=== PATIENT | female | born 1965 | race Caucasian/White ===

== ENCOUNTER 2022-01-21 08:05 | Emergency (ER) | payer MEDICARE, OTHER ==
[~2022-01-21] VITALS: Ht 167 cm; Wt 64.0 kg
--- NOTE | 2022-01-21 09:00 | ED Abdominal Pain ---
General Chief Complaint: Abdominal/GI Problems Stated Complaint: CONSTIPATION Nursing Triage Note: PT AMB TO RM 10 PT CO OF CONTSTIPATION FOR 6 MONTHS, PT STATES ONLY SMALL BM. STATES WHEN TRIES TO HAVE BM HAS PROTRUSION THAT IS LARGE ENOUGH TO FIT IN HAND. [facility] DOES NOT HAVE PCP AT THIS X. RATES PAIN10/10. HAS BEEN TAKING MIRLAX. Source of Information: Patient Exam Limitations: No Limitations History of Present Illness Date Seen by Provider: Jan 21, 2022 Time Seen by Provider: 08:50 Initial Comments Patient is a 56-year-old female who presents to the emergency department today with a chief complaint of diffuse abdominal discomfort, abdominal bloating and constipation. Patient states she has not had a "good" bowel movement in the last 6 months. She describes progressive constipation and she is only passing "little balls" of stool. No diarrhea, nothing black or bloody. No fevers or chills. She denies chest pain, shortness of breath. She has been able to eat and drink. She is occasionally nauseous. No history of prior abdominal surgeries. She is not on any daily medications. She has never had a colonoscopy. She states when she strains to have a bowel movement she still feels something at her rectum that she states is large enough to fit in her hand. She has tried to manually disimpact herself but could not feel any stool. She has used multiple yhvo-mpr-vyzorfs medications to try and have bowel movements. She has had 2 enemas, Dulcolax, she takes daily MiraLAX a capful in her coffee daily. She is also been using some Metamucil. She denies any unintentional weight loss. She does occasionally have night sweats. She is a smoker. All other review of systems reviewed and negative except as stated. Timing/Duration: Other (6 months) Severity/Quality: Cramping Location: Generalized Abdomen Radiation: No Radiation Activities at Onset: None Associated Symptoms: Weakness Allergies and Home Medications Allergies Coded Allergies: No Known Drug Allergies (Unverified , 01/21/22) Patient Home Medication List Home Medication List Reviewed: Yes Peg/Electrolytes (Golytely Solution) 236-22.74G Soln, 4,000 ML PO ONCE Prescribed by: JESUS HAYWOOD on 01/21/22 1126 Review of Systems Review of Systems Constitutional: see HPI EENTM: No Symptoms Reported Respiratory: No Symptoms Reported Cardiovascular: No Symptoms Reported Gastrointestinal: Abdominal Pain, Constipated Genitourinary: No Symptoms Reported Musculoskeletal: no symptoms reported Skin: no symptoms reported All Other Systems Reviewed Negative Unless Noted: Yes Physical Exam Vital Signs Vital Signs - First Documented 01/21/22 08:20 Temp 36.7 Pulse 117 Resp 18 B/P (MAP) 157/131 (140) Pulse Ox 98 Capillary Refill : Less Than 3 Seconds Height/Weight/BMI Height: '" Weight: lbs. oz. kg; 22.00 BMI Method: General Appearance: WD/WN, mild distress HEENT: PERRL/EOMI, other (Dry oral mucosa) Neck: normal inspection Respiratory: lungs clear, normal breath sounds, no respiratory distress, no accessory muscle use Cardiovascular: regular rate, rhythm, tachycardia (115) Gastrointestinal: soft, abnormal bowel sounds (Hypoactive bowel sounds), other (Abdomen is somewhat "bloated"/distended) Rectal: normal exam, other (No external hemorrhoids, no palpable internal hemorrhoids, no stool was palpated in the rectal vault. No blood observed) Extremities: normal range of motion, non-tender, normal inspection, no pedal edema Neurologic/Psychiatric: no motor/sensory deficits, alert, normal mood/affect, oriented x 3 Skin: normal color, warm/dry Progress/Results/Core Measures Results/Orders Lab Results Laboratory Tests Test 01/21/22 09:20 01/21/22 10:40 Range/Units White Blood Count 8.4 4.3-11.0 10^3/uL Red Blood Count 4.54 3.80-5.11 10^6/uL Hemoglobin 13.9 11.5-16.0 g/dL Hematocrit 43 35-52 % Mean Corpuscular Volume 94 80-99 fL Mean Corpuscular Hemoglobin 31 25-34 pg Mean Corpuscular Hemoglobin Concent 33 32-36 g/dL Red Cell Distribution Width 13.2 10.0-14.5 % Platelet Count 358 130-400 10^3/uL Mean Platelet Volume 8.8 L 9.0-12.2 fL Immature Granulocyte % (Auto) 0 % Neutrophils (%) (Auto) 59 42-75 % Lymphocytes (%) (Auto) 30 12-44 % Monocytes (%) (Auto) 8 0-12 % Eosinophils (%) (Auto) 2 0-10 % Basophils (%) (Auto) 1 0-10 % Neutrophils # (Auto) 5.0 1.8-7.8 10^3/uL Lymphocytes # (Auto) 2.5 1.0-4.0 10^3/uL Monocytes # (Auto) 0.7 0.0-1.0 10^3/uL Eosinophils # (Auto) 0.2 0.0-0.3 10^3/uL Basophils # (Auto) 0.1 0.0-0.1 10^3/uL Immature Granulocyte # (Auto) 0.0 0.0-0.1 10^3/uL Sodium Level 140 135-145 MMOL/L Potassium Level 3.7 3.6-5.0 MMOL/L Chloride Level 106 98-107 MMOL/L Carbon Dioxide Level 24 21-32 MMOL/L Anion Gap 10 5-14 MMOL/L Blood Urea Nitrogen 13 7-18 MG/DL Creatinine 0.71 0.60-1.30 MG/DL Estimat Glomerular Filtration Rate 101 BUN/Creatinine Ratio 18 Glucose Level 110 H 70-105 MG/DL Calcium Level 9.5 8.5-10.1 MG/DL Corrected Calcium 9.6 8.5-10.1 MG/DL Total Bilirubin 0.3 0.1-1.0 MG/DL Aspartate Amino Transf (AST/SGOT) 12 5-34 U/L Alanine Aminotransferase (ALT/SGPT) 12 0-55 U/L Alkaline Phosphatase 72 40-136 U/L Total Protein 6.8 6.4-8.2 GM/DL Albumin 3.9 3.2-4.5 GM/DL Urine Color YELLOW Urine Clarity CLEAR Urine pH 6.5 5-9 Urine Specific Moville 1.010 L 1.016-1.022 Urine Protein NEGATIVE NEGATIVE Urine Glucose (UA) NEGATIVE NEGATIVE Urine Ketones NEGATIVE NEGATIVE Urine Nitrite NEGATIVE NEGATIVE Urine Bilirubin NEGATIVE NEGATIVE Urine Urobilinogen 0.2 < = 1.0 MG/DL Urine Leukocyte Esterase NEGATIVE NEGATIVE Urine RBC (Auto) NEGATIVE NEGATIVE Urine RBC NONE /HPF Urine WBC NONE /HPF Urine Squamous Epithelial Cells 0-2 /HPF Urine Crystals NONE /LPF Urine Bacteria NEGATIVE /HPF Urine Casts NONE /LPF Urine Mucus NEGATIVE /LPF Urine Culture Indicated NO My Orders Orders - JESUS HAYWOOD MD Ed Iv/Invasive Line Start (01/21/22 09:06) Cbc With Automated Diff (01/21/22 09:06) Comprehensive Metabolic Panel (01/21/22 09:06) Ua Culture If Indicated (01/21/22 09:06) Abdomen/Kub 1view (01/21/22 09:06) Ns Iv 1000 Ml (Sodium Chloride 0.9%) (01/21/22 09:15) Fentanyl Inj (Sublimaze Injection) (01/21/22 09:15) Ct Abdomen/Pelvis W (01/21/22 10:23) Iohexol Injection (Omnipaque 350 Mg/Ml 1 (01/21/22 10:30) Received Contrast (Hold Metformin- Contr (01/21/22 10:30) Ns (Ivpb) (Sodium Chloride 0.9% Ivpb Bag (01/21/22 10:30) Fentanyl Inj (Sublimaze Injection) (01/21/22 11:30) Medications Given in ED Current Medications Medications Dose Ordered Sig/Chele Route Start Time Stop Time Status Last Admin Dose Admin Fentanyl Citrate 50 mcg ONCE ONCE IVP 01/21/22 09:15 01/21/22 09:16 DC 01/21/22 09:22 50 MCG Fentanyl Citrate 50 mcg ONCE ONCE IVP 01/21/22 11:30 01/21/22 11:31 DC 01/21/22 11:41 50 MCG Iohexol 100 ml ONCE ONCE IV 01/21/22 10:30 01/21/22 10:31 DC 01/21/22 10:36 80 ML Sodium Chloride 100 ml ONCE ONCE IV 01/21/22 10:30 01/21/22 10:31 DC 01/21/22 10:36 80 ML Vital Signs/I&O 01/21/22 01/21/22 08:20 11:45 Temp 36.7 Pulse 117 80 Resp 18 18 B/P (MAP) 157/131 (140) 136/88 Pulse Ox 98 98 Blood Pressure Mean: 140 Progress Progress Note : Time: 12:18 Progress Note Patient seen and examined, 56-year-old with progressive constipation and abdominal discomfort. Evaluation today includes a physical exam, CBC, chemistry. Her labs are basically unremarkable. She had a KUB which shows an extensive amount of stool in the upper abdomen with gas almost to the rectum. CT of the abdomen and pelvis with IV contrast shows some stranding around the duodenum and pancreatic head. No obvious masses. No evidence of bowel obstruction, tumors, free fluid. She has a nonsurgical exam. She is treated with fentanyl and IV fluids with some relief of symptoms. I have prescribed her some GoLytely to try and help with her constipation. She is recommended to drink plenty of fluids and continue wrav-wjt-zfknuaf fiber and stool softeners. I have strongly encouraged her to quit smoking and to follow-up with her primary care physician. She needs a colonoscopy to evaluate for potential intraluminal abnormalities such as colon cancers. She does have an aunt who had colon cancer. Patient verbalizes understanding of the discharge instructions. She is comfortable with plan of care. All questions are sought and answered. Patient is stable at discharge. Diagnostic Imaging Diagonstic Imaging: Xray Comments [facility] [place] NAME: REENA HOOVER [facility] REC#: [id number] PT STATUS: REG ER : 1965 PHYSICIAN: JESUS HAYWOOD MD ADMIT DATE: 01/21/22/ER Signed Date of Exam:01/21/22 ABDOMEN/KUB 1VIEW HISTORY: Abdominal pain TECHNIQUE: Frontal views of the abdomen COMPARISON: None FINDINGS: There is szovqtwn-kv-fmfuua stool throughout the colon. No distended loops of small bowel are seen. There is no large collection of free air. There are phleboliths in the pelvis. IMPRESSION: 1. Fmekgtyv-an-pzzyth stool in the colon, consistent with constipation. Dictated by: Dictated on workstation # [id number] Dict: 01/21/22924 Trans: 01/21/22947 [facility] [id number] Interpreted by: DANA MATHUR MD Electronically signed by: DANA MATHUR MD 01/21/22947 Comments [facility] [place] NAME: KIKOREENA [facility] REC#: [id number] PT STATUS: REG ER : 1965 PHYSICIAN: JESUS HAYWOOD MD ADMIT DATE: 01/21/22/ER Draft Date of Exam:11/05/22 CT ABDOMEN/PELVIS W Clinical indications: Patient complains of constipation for 6 months. Patient only has small bowel movements. Patient has bowel movement protrusion that is large enough to fit in his hand. EXAM: Axial CT scan of the abdomen and pelvis performed with 80 mL of Omnipaque 350 IV contrast. Sagittal and coronal reformatted images are created. COMPARISON: None. FINDINGS: There is minimal atelectasis involving the posterior aspects of both lung bases. There is lower lumbar spine facet arthropathy. There are small spurs involving the lumbar spine. The liver, spleen, and adrenal glands unremarkable. Gallbladder is decompressed and otherwise unremarkable. There is wall thickening and fat stranding adjacent to the 1st portion of duodenum and near the pancreatic head. There is a focal area of calcification within the head of the pancreas. Pancreas is otherwise unremarkable. The stomach is decompressed with wall thickening seen which is nonspecific. Both kidneys are unremarkable with no hydronephrosis or mass. Bladder is fluid-filled and otherwise unremarkable. There is a moderate to large amount of stool involving the right colon and moderate amount of stool involving the transverse colon. There is a small amount of stool involving the proximal descending colon. The rest of the descending colon, sigmoid colon are decompressed. There is air distention of the rectum but no stool is seen in the rectum. There is no intestinal obstruction. There is no lymphadenopathy. Uterus is surgically absent. The ovaries are not definitively visualized and may be small in size or surgically absent. Extra abdominal and extrapelvic soft tissue structures are unremarkable. IMPRESSION: 1: There is a moderate amount of stool seen from the cecum to the distal transverse colon. There is no evidence of intestinal obstruction. 2: There is wall thickening and fat stranding adjacent to the 1st portion of duodenum. There is also fat stranding adjacent to the pancreatic head. These findings may be related to duodenitis. Pancreatitis also cannot be completely excluded. Serology tests would help better evaluate. Dictated on workstation # [id number] Dict: 01/21/22 1043 Trans: 01/21/22 1103 [id number] Interpreted by: TITI LOZA MD Electronically signed by: Departure Impression Primary Impression: Abdominal pain Qualified Codes: R10.84 - Generalized abdominal pain Additional Impression: Constipation Qualified Codes: K59.00 - Constipation, unspecified Disposition: 01 HOME, SELF-CARE Condition: Improved Departure-Patient Inst. Decision time for Depature: 11:24 Referrals: TYREL HORN MD (PCP/Family) Primary Care Physician Patient Instructions: Abdominal Pain, Adult ED, Constipation, Adult ED Add. Discharge Instructions: Drink lots of fluids/water to stay well-hydrated. I have given you a prescription for "GoLytely". Mix this as directed. You can mix it with Sprite. Try and drink the whole gallon and 1 evening. You will have some abdominal cramping. You can take hbqy-nyp-qsmyoji Aleve or generic equal 2 pills twice daily with food for the cramping. If you develop a fever or vomiting or worsening abdominal pain please come back to the emergency room for reevaluation. Please call your primary care doctor's office on Sunday to schedule a fo llow-up and reevaluation. You absolutely need a colonoscopy to look inside your colon for why you have been constipated the last 6 months. Scripts Peg/Electrolytes (Golytely Solution) 236-22.74G Soln 4000 ML PO ONCE, #1 EA Prov: JESUS HAYWOOD MD 01/21/22 Copy Copies To 1: TYREL HORN MD, KATHRYN M MD Jan 21, 2022 09:00
[2022-01-21] MEDS ORDERED: fentaNYL INJ 100 MCG/2 ML AMP IVP ONE ×2 (09:15→11:30)
[2022-01-21] MEDS ORDERED: NS IV 1000 ML 1,000 ML IV SCH (09:15)
--- NOTE | 2022-01-21 09:34 | Diagnostic Imaging Report ---
HISTORY: Abdominal pain TECHNIQUE: Frontal views of the abdomen COMPARISON: None FINDINGS: There is izylskun-lv-jzdslz stool throughout the colon. No distended loops of small bowel are seen. There is no large collection of free air. There are phleboliths in the pelvis. IMPRESSION: 1. Ertzosnx-it-lxbfdv stool in the colon, consistent with constipation. Dictated by: Dictated on workstation # [id number]
[2022-01-21 09:36] LABS: BASOPHILS # (AUTO) 0.1 10^3/uL (0.0-0.1); BASOPHILS % (AUTO) 1 % (0-10); EOSINOPHILS # (AUTO) 0.2 10^3/uL (0.0-0.3); EOSINOPHILS % (AUTO) 2 % (0-10); HEMATOCRIT 43 % (35-52); HEMOGLOBIN 13.9 g/dL (11.5-16.0); LYMPHOCYTES # (AUTO) 2.5 10^3/uL (1.0-4.0); LYMPHOCYTES % (AUTO) 30 % (12-44); MEAN CORPUSCULAR HEMOGLOBIN 31 pg (25-34); MEAN CORPUSCULAR HGB CONC 33 g/dL (32-36); MEAN CORPUSCULAR VOLUME 94 fL (80-99); MEAN PLATELET VOLUME 8.8 fL (9.0-12.2); MONOCYTES # (AUTO) 0.7 10^3/uL (0.0-1.0); MONOCYTES % (AUTO) 8 % (0-12); NEUTROPHILS % (AUTO) 59 % (42-75); PLATELET COUNT 358 10^3/uL (130-400); WHITE BLOOD COUNT 8.4 10^3/uL (4.3-11.0)
[2022-01-21 09:47] LABS: ALBUMIN 3.9 GM/DL (3.2-4.5); POTASSIUM 3.7 MMOL/L (3.6-5.0)
[2022-01-21 09:48] LABS: CALCIUM 9.5 MG/DL (8.5-10.1)
[2022-01-21 09:49] LABS: TOTAL PROTEIN 6.8 GM/DL (6.4-8.2)
[2022-01-21 09:51] LABS: BILIRUBIN,TOTAL 0.3 MG/DL (0.1-1.0)
[2022-01-21 09:53] LABS: CREATININE SERUM 0.71 MG/DL (0.60-1.30)
[2022-01-21] MEDS ORDERED: IOHEXOL 350 MG/ML 100 ML (OMNIPAQUE 350) VIAL IV ONE (10:30)
[2022-01-21] MEDS ORDERED: NS 100 ML (IVPB) BAG IV ONE (10:30)
[2022-01-21] MEDS ORDERED: HOLD METFORMIN - RECEIVED CONTRAST 20 ML VIAL IV SCH (10:30)
[2022-01-21 10:57] LABS: BILIRUBIN,URINE NEGATIVE (NEGATIVE); CLARITY,URINE CLEAR; COLOR,URINE YELLOW; GLUCOSE, URINE (UA) NEGATIVE (NEGATIVE); KETONES,URINE NEGATIVE (NEGATIVE); LEUKOCYTE ESTERASE ,URINE NEGATIVE (NEGATIVE); NITRITE,URINE NEGATIVE (NEGATIVE); PH,URINE 6.5 (5-9); PROTEIN,URINE NEGATIVE (NEGATIVE)
[2022-01-21 11:03] LABS: BACTERIA,URINE NEGATIVE /HPF; SQUAMOUS EPITHELIAL CELL,UR 0-2 /HPF
--- NOTE | 2022-01-21 11:05 | Diagnostic Imaging Report ---
Clinical indications: Patient complains of constipation for 6 months. Patient only has small bowel movements. Patient has bowel movement protrusion that is large enough to fit in his hand. EXAM: Axial CT scan of the abdomen and pelvis performed with 80 mL of Omnipaque 350 IV contrast. Sagittal and coronal reformatted images are created. COMPARISON: None. FINDINGS: There is minimal atelectasis involving the posterior aspects of both lung bases. There is lower lumbar spine facet arthropathy. There are small spurs involving the lumbar spine. The liver, spleen, and adrenal glands unremarkable. Gallbladder is decompressed and otherwise unremarkable. There is wall thickening and fat stranding adjacent to the 1st portion of duodenum and near the pancreatic head. There is a focal area of calcification within the head of the pancreas. Pancreas is otherwise unremarkable. The stomach is decompressed with wall thickening seen which is nonspecific. Both kidneys are unremarkable with no hydronephrosis or mass. Bladder is fluid-filled and otherwise unremarkable. There is a moderate to large amount of stool involving the right colon and moderate amount of stool involving the transverse colon. There is a small amount of stool involving the proximal descending colon. The rest of the descending colon, sigmoid colon are decompressed. There is air distention of the rectum but no stool is seen in the rectum. There is no intestinal obstruction. There is no lymphadenopathy. Uterus is surgically absent. The ovaries are not definitively visualized and may be small in size or surgically absent. Extra abdominal and extrapelvic soft tissue structures are unremarkable. IMPRESSION: 1: There is a moderate amount of stool seen from the cecum to the distal transverse colon. There is no evidence of intestinal obstruction. 2: There is wall thickening and fat stranding adjacent to the 1st portion of duodenum. There is also fat stranding adjacent to the pancreatic head. These findings may be related to duodenitis. Pancreatitis also cannot be completely excluded. Serology tests would help better evaluate. Dictated by: Dictated on workstation # [id number]
[2022-01-21] MEDS ORDERED: CLT4KB PO (11:26)
[2022-01-21 11:45] VITALS: BP 136/88
== END 2022-01-21 11:44 | disposition home or self-care (01) ==
LOC: ER 08:11
DX: R10.84 Generalized abdominal pain (principal); K59.00 Constipation, unspecified; Z28.310 Unvaccinated for COVID-19
CPT/HCPCS: 36415; 74018; 74177; 80053; 81000; 85025; 99282

== ENCOUNTER 2022-02-24 06:28 | Outpatient (CLI) | payer MEDICARE ==
[~2022-02-24] VITALS: Ht 167.6 cm; Wt 61.7 kg
[~2022-02-24 06:28] MED LIST: CLT4KB PO
[2022-02-28] MEDS ORDERED: DESV100T6 PO (14:00)
[2022-02-28] MEDS ORDERED: LINA145C PO (14:00)
[2022-02-28] MEDS ORDERED: PANT40TA52 PO (14:00)
[2022-02-28] MEDS ORDERED: METR-145 PO (14:00)
[2022-02-28] MEDS ORDERED: IRBE150T23 PO (14:00)
== END 2022-02-28 14:05 | disposition home or self-care (01) ==
LOC: PREOP 06:28
PROVIDERS: ATTEND Internal Medicine
DX: Z01.818 Encounter for other preprocedural examination (principal)

== ENCOUNTER 2022-03-03 07:53 | Day surgery (SDC) | payer MEDICARE ==
--- NOTE | 2022-02-22 19:22 | HISTORY AND PHYSICAL ---
COLONOSCOPY HISTORY AND PHYSICAL HISTORY OF PRESENT ILLNESS: The patient is 56-year-old white female referred for screening colonoscopy. She does note onset of constipation somewhat abruptly 6-7 months ago. It was not reportedly associated with any change in medication. She actually went to the emergency room on the where CT scan just revealed a lot of stool. CBC, CMP, and UA were unremarkable with normal calcium level of 9.5. She has not previously accomplished a colonoscopy. Family history is pertinent for one aunt with colon cancer diagnosed in her 60s. She has a sister who had pelvic cancer, appearing to be uterine cancer and the patient has a personal history of uterine cancer diagnosed over five years ago. She reports that she had one ovary removed, the other one remained and she also had elective appendectomy at that time. The patient denies bright red blood per rectum or melena. PHYSICAL EXAMINATION: GENERAL: Reveals a white female. She did not appear to be in acute distress. VITAL SIGNS: Weight 135 pounds, which is actually up 5 pounds from three weeks ago. Blood pressure 120/60. CHEST: Clear. CARDIOVASCULAR: Reveals a regular rate and rhythm without murmur, S3, or S4. ABDOMEN: Soft, supple without mass or organomegaly. There is some fullness in the right mid and lower quadrant of the abdomen. The patient does have tenderness over this area. She also reports tenderness over the epigastrium and left upper quadrant without rebound or guarding. ASSESSMENT AND PLAN: The patient is undergoing screening colonoscopy. The history that began earlier this year for constipation. She is now responding well to recently prescribed Linzess, reporting regular bowel movements and resolution of constipation. Prep instructions with Sutab were given and questions were answered. Electronic medical record was reviewed. Job ID: [id number] DocumentID: [id number] Dictated Date: 02/22/2022 18:18:50 Humanities Teacher Date: 02/22/2022 19:20:00 Dictated By: CLARITZA DUONG MD
[~2022-03-03] VITALS: Ht 167.6 cm; Wt 61.7 kg
[~2022-03-03 07:53] MED LIST changes: +DESV100T6 PO; +IRBE150T23 PO; +LINA145C PO; +METR-145 PO; +PANT40TA52 PO
[2022-03-03] MEDS ORDERED: LACTATED RINGERS 1,000 ML IV STA (07:55)
[2022-03-03 08:10] VITALS: BP 118/95
--- NOTE | 2022-03-03 08:26 | Pre-Op Note & Conscious Sedat ---
Pre-Operative Progress Note Date H&P Reviewed: Mar 03, 2022 Time H&P Reviewed: 08:25 History & Physical: H&P Reviewed, Patient Examed, No changes noted Pre-Op Diagnosis: screening Conscious Sedation Pre-Proced ASA Score 2 For ASA 3 and 4: Consider anesthesia and medical clearance. Also, for patients with a history of failed moderate sedation consider anesthesia. Airway Lungs Heart ASA score ASA 1: a normal healthy patient ASA 2: a patient with a mild systemic disease (mid diabetes, controlled hypertension, obesity ASA 3: a patient with a severe systemic disease that limits activity (angina, COPD, prior Myocardial infarction) ASA 4: a patient with an incapacitating disease that is a constant threat to life (CHF, renal failure) ASA 5: a moribund patient not expected to survive 24 hrs. (ruptured aneurysm) ASA 6: a declared brain- patient whose organs are being harvested. For emergent operations, add the letter E after the classification Mallampati Classification Grade 1 Sedation Plan Analgesia, Amnesia, Plan communicated to team members, Discussed options with patient/fam, Discussed risks with patient/fam The patient is an appropriate candidate to undergo the planned procedure, sedation, and anesthesia. The patient immediately re-assessed prior to indication. CLARITZA DUONG MD Mar 03, 2022 08:26
[2022-03-03] MEDS ORDERED: PROPOFOL INJECTION 50 ML IV ONE (09:05)
[2022-03-03 09:50] VITALS: BP 112/78
[2022-03-03 09:55] VITALS: BP 113/91
--- NOTE | 2022-03-03 09:56 | Progress Note-Post Operative ---
Post-Procedure Note Physician (s)/Parachutist/Combatant Diver Qualified (s) Physician CLARITZA DUONG MD Pre-Procedure Diagnosis Pre-Procedure Diagnosis: screening Post-Procedure Diagnosis Post-operative diagnosis: Prior to undergoing colonoscopy digital rectal evaluation was performed. Anal sphincter tone was normal and the perianal reflexes intact. No abnormalities noted on digital inspection of the anal canal or distal rectal vault. The colonoscope was then inserted into the rectum and under direct visualization advanced to the cecum. This was identified by identification of the ileocecal valve and cecal strap. A careful inspection was made as the colonoscope was withdrawn. Quality the prep was fair there were pools of liquid stool requiring a fair amount of suctioning with nothing solid obscuring viewing. Findings: There were no evidence for internal or external hemorrhoids. Save for diffuse mild dilatation of the colon at the rectum sigmoid and descending colon were unremarkable. A 4 mm sessile polyps were noted in the distal transverse mid transverse and proximal ascending colon were all were biopsied and ablated with no blood loss. No evidence for diverticular disease was noted and there was no evidence for obstruction. The cecum was unremarkable. A/P 1. Mild diffuse colonic dilatation is present without evidence for obstruction. No inflammatory changes noted no evidence for diverticular disease was noted. 3 approximate 4 mm polyps were biopsied and cauterized with no subsequent blood loss noted in the distal and mid transverse colon as well as proximal ascending colon. Due to this and a lot of remaining liquid stool we will advocate repeat surveillance colonoscopy in 1 year. CLARITZA DUONG MD Mar 03, 2022 09:56
--- NOTE | 2022-03-03 09:59 | Anesthesia-General Post-Op ---
MAC Patient Condition Mental Status/LOC: Same as Preop Cardiovascular: Satisfactory Nausea/Vomiting: Absent Respiratory: Satisfactory Pain: Controlled Complications: Absent Post Op Complications Complications None Follow Up Care/Instructions Patient Instructions None needed. Anesthesiology Discharge Order Discharge Order Patient is doing well, no complaints, stable vital signs, no apparent adverse anesthesia problems. No complications reported per nursing. DALTON ODOM CRNA Mar 03, 2022 09:59
[2022-03-03 10:15] VITALS: BP 113/91
== END 2022-03-03 11:00 | disposition home or self-care (01) ==
LOC: ENDO 07:53
PROVIDERS: ATTEND Internal Medicine
DX: Z12.11 Encounter for screening for malignant neoplasm of colon (principal); D12.2 Benign neoplasm of ascending colon; D12.3 Benign neoplasm of transverse colon; K63.5 Polyp of colon